=== PATIENT | male | born 1995 | race Caucasian/White ===

== ENCOUNTER → 2024-02-19 | Outpatient (CLI) | payer OTHER, SELFPAY ==
--- NOTE | 2024-02-19 15:18 | RAD_ITS ---
INDICATION: [employer] MACHINE.HSTEID EXAMINATION/TECHNIQUE: X-RAY - LEFT XR Ankle Min 3 Views 3 VIEWS COMPARISON: No relevant prior comparison study available FINDINGS: SOFT TISSUES: No soft tissue swelling or gas. No radiopaque foreign body. BONES/JOINTS: Nondisplaced fracture of the base of the fifth metatarsal. Normal alignment. Preservation of the joint space.. No sclerotic or destructive changes observed. RAD/Ankle min 3 Views IMPRESSION: Fracture of the base of the fifth metatarsal. Electronically Signed: Octavio Vitale MD at 15:36 EDT ,
--- NOTE | 2024-02-19 15:18 | RAD_ITS ---
INDICATION: LEFT FOOT AND ANKLE SPRAIN EXAMINATION/TECHNIQUE: X-RAY - LEFT XR Foot Min 3 Views 3 VIEWS COMPARISON: No relevant prior comparison study available FINDINGS: SOFT TISSUES: No soft tissue swelling or gas. No radiopaque foreign body. BONES/JOINTS: Nondisplaced fracture of the base of the fifth metatarsal. The remainder of the osseous structures appear intact. Normal alignment. Preservation of the joint space.. No sclerotic or destructive changes observed. RAD/Foot min 3 Views IMPRESSION: Fracture of the base of the fifth metatarsal. Electronically Signed: Octavio Vitale MD at 15:35 EDT ,
== END | disposition home or self-care (01) ==
LOC: RAD 15:08
PROVIDERS: Referring Provider Nurse Practitioner Family; Visit Provider Nurse Practitioner Family
DX: S93.602A Unspecified sprain of left foot, initial encounter (principal)
CPT/HCPCS: 73610; 73630